=== PATIENT | male | born 2000 | race Caucasian/White ===

== ENCOUNTER 2023-02-19 14:58 | Emergency (ER) | payer BC, SELFPAY ==
--- NOTE | ~2023-02-19 | XR_ITS ---
EXAMINATION: XR hand LT min 3V DATE: 02/19/2023 15:29 INDICATION: Left hand injury with laceration to the dorsum of the left hand at the third metacarpal TECHNIQUE: Posteroanterior, oblique and lateral views of the left hand were obtained. COMPARISON: None. FINDINGS: Alignment is normal. No fracture. Joint spaces are normal. Bandaging material overlying the dorsum of the left hand. No radiopaque foreign bodies. IMPRESSION: 1. No osseous abnormality or radiopaque foreign body. Reviewed, dictated and finalized at location B.
[2023-02-19 15:07] VITALS: BP 113/78; PULSE 65; RESP 16; TEMP 36.6; O2SAT 99
--- NOTE | 2023-02-19 16:52 | ECG_ITS ---
Measurements Intervals [place] Rate: 66 P: 55 MN: 159 QRS: 55 QRSD: 113 T: 43 QT: 366 QTc: 385 Interpretive Statements SINUS RHYTHM WITH SINUS ARRHYTHMIA INCOMPLETE RIGHT BUNDLE BRANCH BLOCK BASELINE ARTIFACT- I, II, AVR BORDERLINE ECG NO PREVIOUS ECG AVAILABLE FOR COMPARISON Electronically Signed On 02-19-2023 21:19:51 CDT by Lorne Kasper D.O.
--- NOTE | 2023-02-19 16:52 | ED.WOUNDLAC ---
HPI - Wound/Laceration General Chief Complaint: Wound/Laceration Stated Complaint: hand laceration Time Seen by Provider: 02/19/23 16:15 History of Present Illness HPI narrative: 22 y/o M reports for evaluation for a laceration to the dorsum of his left hand that occurred just prior to arrival. Patient states he was working on his car on the exhaust clamp when he accidentally cut himself with it. States he got up and went to the bathroom after he obtained the laceration, began to feel lightheaded and syncopized. Patient states he was on the ground for approximately 10 to 15 seconds and then was able to get up on his own. States his sister was with him in the bathroom and saw the syncopal episode occurred. He states that he did not hit his head, he is denying any pain from the fall. He denies history of seizures, states he did not have any urinary incontinence, no tongue biting. Patient states he felt lightheaded secondary to the laceration which she believes is why he syncopized. He denies chest pain or shortness of breath, headache or vision changes, neck pain, focal numbness or weakness, abdominal pain. Reports his tetanus is up-to-date and bleeding is currently controlled. Denies paresthesias or difficulty with range of motion of his hand. Denies history of syncope. Related Data Allergies Allergy/AdvReac Type Severity Reaction Status Date / Time Wasp Allergy Unknown Uncoded 11/29/18 10:13 Review of Systems Review of Systems: CONSTITUTIONAL: Denies fever, chills EYES: Denies visual changes, redness, or discharge. ENT: Denies rhinorrhea, congestion, sore throat, or otalgia. CARDIOVASCULAR: Denies chest pain, palpitations, or edema. RESPIRATORY: Denies cough or dyspnea. GASTROINTESTINAL: Denies abdominal pain, nausea, vomiting, or diarrhea. GENITOURINARY: Denies dysuria or hematuria. SKIN: See HPI MUSCULOSKELETAL: Denies back pain, joint pain, or myalgia. NEUROLOGIC: Denies headache, numbness, dizziness, or weakness. PSYCHIATRIC: Denies anxiety or depression. Exam Narrative: GENERAL: Well-appearing, in no acute distress. HEAD: Normocephalic EYES: PERRLA ENT: Nares clear. Mucous membranes moist. Oropharynx without tonsillar hypertrophy exudate or other lesions. NECK: Supple. CHEST: No respiratory distress. Clear to auscultation, no adventitious breath sounds. HEART: Regular rate and rhythm. No murmur heard. Normal peripheral pulses. EXTREMITIES: Normal range of motion. No edema. SKIN: 3 cm half-lamar shaped laceration to the dorsum of the left hand, no deep structures visualized. No foreign bodies visualized. Full flexion and extension of fingers. Cap refill less than 2. Radial pulse 2+. Sensation intact. NEURO: No focal deficits. Alert and oriented x3. Cranial nerves II through XII grossly intact. Ambulatory without difficulty. No aphasia or dysarthria. PSYCH: Normal mood and affect. Course Vital Signs Vital signs: Vital Signs Temperature 97.9 F 02/19/23 15:07 Pulse Rate 65 02/19/23 15:07 Respiratory Rate 16 02/19/23 15:07 Blood Pressure 113/78 02/19/23 15:07 Pulse Oximetry 99 02/19/23 15:07 Temperature 97.9 F 02/19/23 15:07 Pulse Rate 65 02/19/23 15:07 Respiratory Rate 16 02/19/23 15:07 Blood Pressure 113/78 02/19/23 15:07 Pulse Oximetry 99 02/19/23 15:07 Procedures Laceration Laceration 1: Date: 02/19/23 Time: 18:15 Site: upper extremity and hand Side (If applicable): left Size (cm): 3 Description: linear and clean Depth: simple, single layer Local Anesthetic: lidocaine 1% and with epi Amount of anesthesia used (mL): 4 Pre-repair: wound explored, irrigated, irrigated extensively and deep structures intact ====== Skin Level ====== Skin layer closed with: nylon Size (cm): 5-0 Number of sutures: 5 Technique: simple, interrupted ====== Subcutaneous Layer ==
[2023-02-19] MEDS: LIDO 1%/EPINEPHRINE 1:100,000 20 ML VIAL 10 ML INFILTRATE (17:50)
--- NOTE | 2023-02-19 17:55 | PC.NURSE ---
erp edu Russo at bedside at bedside.
== END 2023-02-19 19:45 | disposition home or self-care (01) ==
PROVIDERS: Emergency Provider Physician Assistant
DX: S61.412A Laceration without foreign body of left hand, initial encounter (principal); R55 Syncope and collapse; W26.8XXA Contact with other sharp object(s), not elsewhere classified, initial encounter
CPT/HCPCS: 12002; 73130; 93005; 99283